=== PATIENT | female | born 1995 | race Caucasian/White ===

== ENCOUNTER 2018-11-23 09:10 | Inpatient (IN) ==
[2018-11-23] MEDS ORDERED: BENTYL PO PRN (16:30)
[2018-11-23] MEDS ORDERED: ROBAXIN PO PRN (16:30)
[2018-11-23] MEDS ORDERED: NICODERM PATCH TD PRN (16:30)
[2018-11-23] MEDS ORDERED: D5W 1,000 ML IV PRN (16:30)
[2018-11-23] MEDS ORDERED: ZOFRAN ODT PO PRN (16:30)
[2018-11-23] MEDS ORDERED: LIBRIUM PO PRN (16:30)
[2018-11-23] MEDS ORDERED: ZOFRAN IM PRN (16:30)
[2018-11-23] MEDS ORDERED: TUBERSOL ID ONE (16:30)
[2018-11-23] MEDS ORDERED: ATARAX PO PRN (16:30)
[2018-11-23] MEDS ORDERED: TYLENOL PO PRN (16:30)
[2018-11-23] MEDS ORDERED: SINEMET 25/100 PO PRN (16:30)
[2018-11-23 17:38] LABS: HEMATOCRIT 32.1 % (37.0-47.0); HEMOGLOBIN 10.8 g/dL (12.0-16.0); MCH 29.8 PG (27-31); MCHC 33.6 g/dL (33-37); MCV 88.4 FL (81-99); MPV 10.9 FL (7.4-10.4); RBC 3.63 XMIL (4.2-5.4); RDW 14.1 % (11.5-14.5); WBC 6.68 X1000 (4.8-10.8)
[2018-11-23 17:56] LABS: INR 0.89; PROTIME 12.5 Seconds (11.0-16.0)
[2018-11-23 18:00] LABS: AMYLASE 72 U/L (20-200); LIPASE 26 U/L (13-60)
[2018-11-23 18:06] LABS: AGAP 9; ALBUMIN 3.2 g/dL (3.5-5.0); ALKALINE PHOSPHATASE 92 U/L (32-104); BUN 12 mg/dL (8-22); CHLORIDE 101 mmol/L (98-107); COSMO 271; CREATININE 0.5 mg/dL (0.5-0.9); ESTIMATED GFR > 60; GLUCOSE 77 mg/dL (70-104); GOT 103 U/L (10-30); GPT 138 U/L (10-36); POTASSIUM 3.7 mmol/L (3.5-5.1); SODIUM 136 mmol/L (136-145); TCO2 26 mmol/L (25-35); TOTAL BILIRUBIN < 0.15 mg/dL (0.20-1.00); TOTAL PROTEIN 6.7 g/dL (6.3-8.3)
[2018-11-23] MEDS: SUBUTEX SL SCH (18:27)
[2018-11-23 18:43] LABS: URINE SOURCE VOIDED
[2018-11-23 18:51] LABS: BILIRUBIN URINE NEGATIVE (NEGATIVE); BLOOD URINE NEGATIVE (NEGATIVE); CLARITY SL. CLOUDY (CLEAR); COLOR YELLOW; GLUCOSE URINE NEGATIVE (NEGATIVE); KETONE URINE NEGATIVE (NEGATIVE); LEUKOCYTES URINE TRACE (NEGATIVE); NITRITE URINE NEGATIVE (NEGATIVE); PROTEIN URINE NEGATIVE (NEGATIVE); UROBILINOGEN URINE 1 mg/dL
[2018-11-23 18:52] LABS: UR AMPHETAMINES QUAL NONE DETECTED (NONE DETECT); UR BARBITUATES QUAL NONE DETECTED (NONE DETECT); UR BENZODIAZEPIN QUAL NONE DETECTED (NONE DETECT); UR CANNABINOIDS QUAL NONE DETECTED (NONE DETECT); UR COCAINE QUAL NONE DETECTED (NONE DETECT); UR METHADONE QUAL NONE DETECTED (NONE DETECT); UR METHAMPHETAMINE QUAL NONE DETECTED (NONE DETECT); UR OPIATES QUAL NONE DETECTED (NONE DETECT); UR OXYCODONE QUAL NONE DETECTED (NONE DETECT); UR PCP QUAL NONE DETECTED (NONE DETECT); UR PROPOXYPHENE QUAL NONE DETECTED (NONE DETECT); UR TCA QUAL NONE DETECTED (NONE DETECT)
[2018-11-23 19:00] LABS: URINE BACTERIA 1+ /HFP; URINE EPITHELIAL CELLS <10 /HPF (<10)
[2018-11-23 19:01] LABS: URINE CAST NONE SEEN /LPF; URINE CRYSTAL NONE SEEN /HPF; URINE WBC <10 /HPF (<10); URINE YEAST NONE SEEN /HPF
[2018-11-24] MEDS: SUBUTEX SL SCH ×3 (00:23→17:14)
--- NOTE | 2018-11-24 02:28 | HISTORY AND PHYSICAL ---
CHIEF COMPLAINT: Nausea, vomiting. HISTORY OF PRESENT ILLNESS: The patient is a 23-year-old female who presented to [facility] secondary to nausea, vomiting, abdominal pain. Notes that she has been using and abusing. She is currently and states that she wants to get her life back under control. SOCIAL HISTORY: Patient is . She is unemployed. Lives at home in [place]. PAST MEDICAL HISTORY: Chronic anxiety. She has history of hypertension. MEDICATIONS: None. ALLERGIES: None. REVIEW OF SYSTEMS: CINA score is 9 secondary to frequent temperature changes, nausea, vomiting, diaphoresis, anxiety, myalgias, frequent abdominal pain. Denies any fevers or chills. Denies dysuria, urinary frequency, urgency. Denies hesitancy, polyuria or polydipsia. Denies skin rashes, weight loss or weight gain. Denies diarrhea, constipation, melena, hematochezia. FAMILY HISTORY: Noncontributory. SUBSTANCE ABUSE HISTORY: Patient was in treatment in 2013 for 6-7 days. In 2017, was in [email or web address] for 4 months and then was in [facility] again for 4 months. Began marijuana at age 12, uses occasionally. Began stimulants at age 15. Currently is taking meth 0.5 g a day. Started smoking at age 15, currently smokes approximately a pack a day. PHYSICAL EXAMINATION: VITAL SIGNS: Reviewed and stable. GENERAL: Patient is awake, alert. She is currently in no respiratory distress. HEENT: Normocephalic, atraumatic. RADHA. NECK: Supple. No JVD. CARDIOVASCULAR: Regular rate. No murmurs. CHEST: Clear, nonlabored. ABDOMEN: Soft, nondistended. EXTREMITIES: Moves all extremities. NEUROLOGIC: No focal neurological changes. SKIN: Warm and dry. No rashes. ASSESSMENT: 1. Nausea and vomiting. 2. Abdominal pain. 3. Myalgias. 4. Paresthesias. PLAN: We will start patient on Suboxone, Subutex. We will begin counseling. We will treat symptomatically. cc: Eddy Cevallos MD
[2018-11-24] MEDS: PROTONIX PO SCH (06:12)
[2018-11-24] MEDS: VITAMIN B-1 PO SCH (08:25)
[2018-11-24] MEDS: FOLIC ACID PO SCH (08:26)
[2018-11-24] MEDS: THERA M PLUS PO SCH (08:26)
[2018-11-25] MEDS: SUBUTEX SL SCH ×2 (00:03→08:23)
--- NOTE | 2018-11-25 00:52 | PROGRESS NOTE ---
DATE: 11/24/2018 SUBJECTIVE: Patient notes she is a little bit better. Still having lots of anxiety issues, lots of pain. Denies any swelling. Did not sleep last night. PHYSICAL EXAMINATION: Vital Signs: Afebrile. Vital signs stable. General: Is awake, alert. No current respiratory distress. HEENT: Normocephalic. Neck: Supple. Cardiovascular: Regular rate. Chest: Clear. Abdomen: Soft. Extremities: Moves all extremities. ASSESSMENT: 1. Nausea and vomiting. 2. Abdominal pain. 3. Myalgias. 4. Hepatitis. 5. 20 weeks . PLAN: Continue patient in the hospital. Continue Subutex. We will wean as tolerated. Further orders as needed. cc: Eddy Cevallos MD
[2018-11-25 05:49] LABS: HEMATOCRIT 32.2 % (37.0-47.0); HEMOGLOBIN 10.6 g/dL (12.0-16.0); MCH 29.6 PG (27-31); MCHC 32.9 g/dL (33-37); MCV 89.9 FL (81-99); RBC 3.58 XMIL (4.2-5.4); RDW 14.3 % (11.5-14.5); WBC 7.1 X1000 (4.8-10.8)
[2018-11-25] MEDS: PROTONIX PO SCH (06:18)
[2018-11-25 06:31] LABS: AGAP 9; ALBUMIN 2.8 g/dL (3.5-5.0); ALKALINE PHOSPHATASE 85 U/L (32-104); BUN 12 mg/dL (8-22); CALCIUM 8.8 mg/dL (8.8-10.2); CHLORIDE 105 mmol/L (98-107); COSMO 274; CREATININE 0.5 mg/dL (0.5-0.9); ESTIMATED GFR > 60; GLUCOSE 66 mg/dL (70-104); GOT 94 U/L (10-30); GPT 124 U/L (10-36); MAGNESIUM 1.6 mg/dL (1.5-2.7); POTASSIUM 4.1 mmol/L (3.5-5.1); SODIUM 138 mmol/L (136-145); TCO2 25 mmol/L (25-35); TOTAL BILIRUBIN < 0.15 mg/dL (0.20-1.00); TOTAL PROTEIN 6.2 g/dL (6.3-8.3)
[2018-11-25 07:56] VITALS: BP 105/55
[2018-11-25] MEDS: FOLIC ACID PO SCH (08:23)
[2018-11-25] MEDS: VITAMIN B-1 PO SCH (08:23)
[2018-11-25] MEDS: THERA M PLUS PO SCH (08:23)
[2018-11-25] MEDS ORDERED: SUBUTEX SL ONE (10:00)
[2018-11-25] MEDS ORDERED: SUBUTEX SL SCH (21:00)
--- NOTE | 2018-11-25 22:11 | DISCHARGE SUMMARY ---
ADMISSION DATE: 11/23/2018 DISCHARGE DATE: 11/25/2018 DISCHARGE DIAGNOSIS: 1. Nausea, vomiting, abdominal pain. 2. Myalgias. 3. Paresthesias. 4. Acute hepatitis improving. 5. Twenty week . 6. Polysubstance use and abuse. CONSULTATIONS: None. PROCEDURES: None. BRIEF HOSPITAL COURSE: The patient is a 23-year-old female who presented to [facility] program treated in usual fashion, placed on Subutex due to her . Thankfully, she had an uneventful hospital course. On discharge she is awake, alert, she is in no distress and therefore she will be discharged home. DISPOSITION: Patient will be discharged home. Each day counseling was performed by myself. Discussed with patient she needs further outpatient life counseling as well as drug counseling. She will be discharged on Subutex. cc: Eddy Cevallos MD
[2018-11-27 13:41] LABS: HEPATITIS PROFILE ACUTE SEE COMMENTS
== END 2018-11-25 13:00 | disposition home or self-care (01) | DRG 832 ==
LOC: P.DIRADM 16:02 → P.MEDSURG 16:16
PROVIDERS: ADMIT Family Medicine; ATTEND Family Medicine
CPT/HCPCS: 80053; 80074; 80104; 80301; 80305; 80307; 80320; 81001; 82055; 82150; 83690; 83735; 85027; 85610; 86580; A9270; G0431; G0434; G0477; G0480; G6040